=== PATIENT | male | born 1950 | race Caucasian/White ===

== ENCOUNTER 2021-01-14 08:06 | Observation (INO) ==
[2021-01-14] MEDS ORDERED: NS 0.9% 1000 ml BAG 1,000 ML IV ONE (08:08)
[2021-01-14] MEDS ORDERED: Ondansetron 4 mg VIAL 2 MG/ML 2 ml VIAL IV ONE ×2 (08:08→09:13)
[2021-01-14 08:57] LABS: Hematocrit 44 % (42-52); Hemoglobin 14.9 g/dL (14.0-18.0); Mean Corpuscular HGB Conc 34 g/dL (31-36); Mean Corpuscular Hemoglobin 30 pg (27-31); Mean Corpuscular Volume 89 fL (80-94); Red Blood Count 4.99 10^6 /uL (4.18-5.48); Red Cell Distribution Width 14 % (10-15); White Blood Count 11.7 10^3/uL (3.5-10.8)
[2021-01-14 09:10] LABS: ALT 28 U/L (7-52); Albumin 4.6 g/dL (3.2-5.2); Alkaline Phosphatase 86 U/L (34-104); BUN/Creatinine Ratio 23.5 (8-20); Blood Urea Nitrogen 23 mg/dL (6-24); CO2 Carbon Dioxide 22 mmol/L (22-32); Calcium 9.6 mg/dL (8.6-10.3); Chloride 106 mmol/L (101-111); EGFR African American 91.2 (>60); EGFR Non-African American 75.4 (>60); Globulin 2.3 g/dL (2-4); Glucose 163 mg/dL (70-100); Sodium 138 mmol/L (135-145); Total Protein 6.9 g/dL (6.4-8.9)
[2021-01-14 09:32] LABS: ABS Basophils 0.1 10^3/ul (0-0.2); ABS Eosinophils 0.2 10^3/ul (0-0.6); ABS Lymphocytes 2.3 10^3/ul (1.0-4.8); ABS Monocytes 0.4 10^3/ul (0-0.8); ABS Neutrophils 8.8 10^3/ul (1.5-7.7); Eosinophil % 1.6 %; Lymphocyte % 19.3 %; Mean Platelet Volume 9.8 fL (7.4-10.4); Platelet Count 169 10^3/uL (150-450)
[2021-01-14 09:47] LABS: TSH Ultra Thyroid Stim Horm 1.37 mcIU/mL (0.34-5.60)
[2021-01-14 10:02] LABS: Anion Gap 10 mmol/L (2-11)
[2021-01-14] MEDS ORDERED: Iohexol 350 (CONTRAST) 500 ML MDV IV ONE (10:30)
[2021-01-14 11:13] LABS: Magnesium 1.8 mg/dL (1.9-2.7)
[2021-01-14] MEDS ORDERED: LORazepam 2 mg VIAL 1 ml IV PUSH ONE (12:03)
[2021-01-14] MEDS ORDERED: Lorazepam PYXIS KEY PRN (12:03)
[2021-01-14 12:37] LABS: Urine Appearance Clear; Urine Bilirubin Negative (Negative); Urine Blood Negative (Negative); Urine Color Straw; Urine Glucose Negative (Negative); Urine Ketones Negative (Negative); Urine Nitrite Negative (Negative); Urine Protein Negative (Negative); Urine Specific Gravity 1.029 (1.010-1.030); Urine Urobilinogen Negative (Negative)
[2021-01-14 16:23] LABS: Hepatitis C Antibody Negative (Negative)
[2021-01-15 04:55] LABS: ABS Lymphocytes 1.6 10^3/ul (1.0-4.8); ABS Monocytes 0.6 10^3/ul (0-0.8); ABS Neutrophils 7.4 10^3/ul (1.5-7.7); Eosinophil % 0.2 %; Hematocrit 40 % (42-52); Hemoglobin 13.4 g/dL (14.0-18.0); Mean Corpuscular HGB Conc 34 g/dL (31-36); Mean Corpuscular Hemoglobin 30 pg (27-31); Mean Corpuscular Volume 89 fL (80-94); Mean Platelet Volume 9.3 fL (7.4-10.4); Platelet Count 147 10^3/uL (150-450); Red Blood Count 4.46 10^6 /uL (4.18-5.48); Red Cell Distribution Width 14 % (10-15); White Blood Count 9.7 10^3/uL (3.5-10.8)
[2021-01-15 05:11] LABS: BUN/Creatinine Ratio 23.3 (8-20); EGFR African American 100.7 (>60); EGFR Non-African American 83.2 (>60); Potassium 3.9 mmol/L (3.5-5.0)
[2021-01-15 07:59] LABS: HDL Cholesterol 48.5 mg/dL
[2021-01-15] MEDS ORDERED: Prochlorperazine 5 mg/ml 2 ml VIAL (10 mg) IV PRN (08:31)
[2021-01-15] MEDS ORDERED: Ondansetron 4 mg VIAL 2 MG/ML 2 ml VIAL IV PRN (08:31)
[2021-01-15] MEDS ORDERED: NS 0.9% 1000 ml BAG 1,000 ML IV SCH (08:45)
[2021-01-15 10:28] VITALS: BP 134/74
== END 2021-01-15 12:35 | disposition home or self-care (01) ==
LOC: ED 08:06 → MED 08:06
PROVIDERS: ADMIT Hospitalist; ATTEND Pediatrics